=== PATIENT | male | born 1995 | race Caucasian/White ===

== ENCOUNTER 2016-09-04 18:25 | Emergency (ER) | payer BC ==
[~2016-09-04] VITALS: Ht 190.5 cm; Wt 116.3 kg
[~2016-09-04 18:25] MED LIST: FEXO1TAB49 PO; IBUP-1050 PO
[2016-09-04 18:34] VITALS: TEMP 36.9; Ht 190.5 cm; Wt 116.3 kg
[2016-09-04] MEDS ORDERED: XYLOCAINE 1%/SOD BICARB 20 ML VIAL INFIL STA (18:52)
[2016-09-04 19:15] LABS: BASO % 0.4 %; BASO ABS # 0.04 K/uL (0-0.2); COMPLETE YES; EOS % 2.7 %; HEMATOCRIT 45.9 % (42-52); IG% 0.2 %; LYMPH % 24.9 %; LYMPH ABS # 2.24 K/uL (1.2-3.4); MEAN CELL VOLUME 87.3 fL (80-100); MEAN CORPUSCULAR HEMOGLOBIN 31.7 pg (25-34); MEAN CORPUSCULAR HGB CONC 36.4 g/dl (32-36); MEAN PLATELET VOLUME 11.5 fL (7.4-10.4); MONO % 4.8 %; PLATELET COUNT 220 K/uL (130-400); RED BLOOD COUNT 5.26 M/uL (4.7-6.1)
[2016-09-04 19:49] LABS: BUN/CREATININE RATIO 10.8 (10-20); CALCIUM 8.7 mg/dl (8.5-10.1); POTASSIUM 4.3 mmol/L (3.5-5.1)
--- NOTE | 2016-09-04 19:57 | DIAGNOSTIC IMAGING REPORT ---
LEFT KNEE 3 VIEWS HISTORY: Left knee pain COMPARISON: None. FINDINGS: There is no fracture or dislocation. Soft tissues are unremarkable. No significant knee effusion. IMPRESSION: No fractures. Electronically signed by: Sidney Austin M.D. 09/04/2016 7:56 PM Dictated Date/Time: 09/04/2016 7:54 PM
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
[2016-09-04 20:16] VITALS: BP 147/76; PULSE 82; O2SAT 97
[2016-09-04 20:40] LABS: LYME DISEASE AB IGG NEG (NEG); LYME DISEASE AB IGM NEG (NEG)
== END 2016-09-04 20:16 | disposition home or self-care (01) ==
LOC: C.EDB 18:26 → C.EDD 20:16
DX: S01.01XA Laceration without foreign body of scalp, initial encounter (principal); W20.8XXA Other cause of strike by thrown, projected or falling object, initial encounter; Y99.0 Civilian activity done for income or pay; M25.562 Pain in left knee; M25.561 Pain in right knee; J45.909 Unspecified asthma, uncomplicated

== ENCOUNTER 2016-09-13 14:54 | Emergency (ER) | payer BC ==
[~2016-09-13] VITALS: Ht 190.5 cm; Wt 111.5 kg
[~2016-09-13 14:54] MED LIST changes: -FEXO1TAB49 PO
[2016-09-13 14:57] VITALS: BP 142/83; PULSE 93; TEMP 36.7; O2SAT 93; Ht 190.5 cm; Wt 111.5 kg
--- NOTE | 2016-09-13 15:27 | EMERGENCY ROOM VISIT NOTE ---
ED Visit Note First contact with patient: 15:13 CHIEF COMPLAINT: Staple removal This patient returns to the ED today for removal of marisela that were placed 9 days ago on the patient's scalp. There has been no swelling, redness, or drainage from the wound. The patient feels like the laceration is healing well. REVIEW OF SYSTEMS: Head: No headache, injury or neck pain. Skin: No rash, new lesions, or masses. General: No fever or chills, fatigue, loss of appetite , or significant recent weight gain or loss. PMH: The patient is healthy; there is no significant medical or surgical history. SOCIAL HISTORY: Patient lives at home. PHYSICAL EXAM: Vital Signs: Reviewed Nurse's notes. There is a stapled wound on the scalp with no signs of infection. There is no erythema, swelling, or tenderness. EMERGENCY DEPARTMENT COURSE: 2 marisela were removed from the scalp without any difficulty and there was no separation of the wound edges. DIAGNOSIS: Healing laceration and staple removal DISCHARGE INSTRUCTIONS AND TREATMENT: Wash any remaining crusts off of the wound today and resume your normal activities. Problem List Medical Problems: (1) Asthma Status: Chronic (2) Bronchopneumonia Status: Resolved (3) Laceration of right thumb Status: Resolved (4) Pneumonia Status: Resolved Surgical Problems: (1) [place] teeth removed Status: Resolved Current/Historical Medications Scheduled PRN Ibuprofen (Advil), 200-800 MG PO Q4H PRN for Pain Allergies Coded Allergies: No Known Allergies (Unverified , 09/04/16) Vital Signs Date Time Temp Pulse Resp B/P Pulse Ox O2 Delivery O2 Flow Rate FiO2 09/13/16 14:57 36.7 93 16 142/83 93 Room Air Departure Information Impression Primary Impression: Encounter for removal of marisela Dispostion Home / Self-Care Condition GOOD Referrals Mandeep Ba M.D. (PCP) Patient Instructions My [facility] [employer] [facility] Additional Instructions Wash any remaining crusts off of the wound today and resume your normal activities.
== END 2016-09-13 15:37 | disposition home or self-care (01) ==
LOC: C.EDB 14:55 → C.EDD 15:37
DX: Z48.02 Encounter for removal of sutures (principal); J45.909 Unspecified asthma, uncomplicated

== ENCOUNTER → 2017-02-24 | Outpatient (CLI) | payer BC ==
--- NOTE | 2017-02-24 19:05 | DIAGNOSTIC IMAGING REPORT ---
LEFT ELBOW 3 VIEWS CLINICAL HISTORY: Olecranon bursitis. FINDINGS: 3 views of the left elbow are compared to study dated 08/12/2010. The skeletal structures are well mineralized. No fracture is seen. The joint spaces are well-maintained. There is no joint effusion. Posterior soft tissue edema is noted. IMPRESSION: Posterior soft tissue edema with no acute bony abnormality identified. Electronically signed by: Frederick Torres M.D. 02/24/2017 7:03 PM Dictated Date/Time: 02/24/2017 6:48 PM
== END | disposition home or self-care (01) ==
LOC: C.RAD 18:25
PROVIDERS: ATTEND Nurse Practitioner
DX: M70.22 Olecranon bursitis, left elbow (principal); S50.02XA Contusion of left elbow, initial encounter; X58.XXXA Exposure to other specified factors, initial encounter; M79.9 Soft tissue disorder, unspecified

== ENCOUNTER 2017-08-05 17:33 | Emergency (ER) | payer BC, OTHER ==
[~2017-08-05] VITALS: Ht 190.5 cm; Wt 100.4 kg
[2017-08-05 17:37] VITALS: TEMP 37; Ht 190.5 cm; Wt 100.4 kg
[2017-08-05] MEDS ORDERED: ONDANSETRON INJ 2 MG/ML 2 ML VIAL IV STA (19:03)
[2017-08-05] MEDS ORDERED: SUCRALFATE 1 GM TAB PO STA (19:03)
[2017-08-05] MEDS ORDERED: FAMOTIDINE 20 MG TAB PO STA (19:03)
[2017-08-05] MEDS ORDERED: GI COCKTAIL PO STA (19:03)
--- NOTE | 2017-08-05 19:10 | EMERGENCY ROOM VISIT NOTE ---
History Report prepared by Sandy: Virginia Mccain Under the Supervision of: Dr. Marito Chamberlain M.D. First contact with patient: 18:58 Chief Complaint: GI ASSESSMENT Stated Complaint: VOMITING WITH MODERATE BLOOD History of Present Illness The patient is a 21 year old male who presents to the Emergency Room for a GI assessment. The patient states that over the past week he has been experiencing hematemesis. He is unsure if he is bleeding from his throat or his stomach. This morning he had an episode of hematemesis that was worse than previous episodes so he decided to come to the ED for further evaluation. The patient reports some epigastric abdominal pain. He rates his pain as an 8/10 in severity. He denies any melena or hematochezia. The patient admits to drinking about two alcoholic drinks per day. Source of History: patient Onset: 1 week ago Position: abdomen Symptom Intensity: 8/10 Quality: other (hematemesis) Timing: worsening Associated Symptoms: + abdominal pain, No melena, No hematochezia Review of Systems See HPI for pertinent positives & negatives. A total of 10 systems reviewed and were otherwise negative. Past Medical & Surgical Medical Problems: (1) Asthma (2) Bronchopneumonia (3) Laceration of right thumb (4) Pneumonia Surgical Problems: (1) [place] teeth removed Family History Cancer Social History Smoking Status: Never Smoker Alcohol Use: occasionally Marital Status: in relationship Housing Status: lives with significant other Occupation Status: employed Current/Historical Medications Scheduled Fluticasone Propionate (Nasal) (Flonase Allergy Relief), 1 SPRAY KEYA QAM Pantoprazole Sodium (Protonix), 1 TAB PO DAILY Allergies Coded Allergies: No Known Allergies (Unverified , 09/04/16) Physical Exam Vital Signs Date Time Temp Pulse Resp B/P (MAP) Pulse Ox O2 Delivery O2 Flow Rate FiO2 08/05/17 21:55 86 18 136/61 98 Room Air 08/05/17 20:51 87 18 137/64 96 Room Air 08/05/17 17:37 37.0 116 17 148/83 98 Room Air Physical Exam GENERAL: Patient is a healthy-appearing well-nourished 21 year old male. HEAD: Normocephalic atraumatic EYES: Ocular movements intact pupils equal and react to light OROPHARYNX mucous membranes are moist no exudates present no erythema or edema present NECK: Supple no nuchal rigidity CHEST: Good equal expansion LUNGS: Clear and equal to auscultation CARDIAC: Normal S1 and S2 ABDOMEN: Soft nontender no guarding BACK: No CVA tenderness EXTREMITIES: No pain upon palpation normal muscle strength in all groups no clubbing cyanosis or edema NEURO: Patient is following commands and answering questions appropriately. Alert and oriented x3 Cranial Nerves 2-12 grossly intact Medical Decision & Procedures ER Provider Diagnostic Interpretation: Radiology results as stated below per my review and radiologist interpretation: ABDOMEN 2VIEW W/PA CHEST RTN CLINICAL HISTORY: 21 years-old Male presenting with Pt c/o epigastric pain . TECHNIQUE: PA view of the chest and supine and upright views of the abdomen were obtained. COMPARISON: 09/21/2014. FINDINGS: Cardiomediastinal silhouette normal. Lungs and pleural spaces clear. Nonobstructive bowel gas pattern. No gross pneumoperitoneum. Allowing for bowel gas and stool, no calcifications to suggest nephrolithiasis. Osseous structures normal. IMPRESSION: 1. No acute cardiopulmonary disease. 2. No radiographic evidence of acute intra-abdominal pathology. Electronically signed by: Femi Meneses M.D. 08/05/2017 9:25 PM Dictated Date/Time: 08/05/2017 9:24 PM Laboratory Results 08/05/17 20:00 Red Blood Count 5.41, Mean Corpuscular Volume 88.4, Mean Corpuscular Hemoglobin 32.0, Mean Corpuscular Hemoglobin Concent 36.2, Mean Platelet Volume 11.3, Neutrophils (%) (Auto) 77.5, Lymphocytes (%) (Auto) 14.0, Monocytes (%) (Auto) 6.2, Eosinophils (%) (Auto) 1.9, Basophils (%) (Auto) 0.1, Neutrophils # (Auto) 5.66, Lymphocytes # (Auto) 1.02, Monocytes # (Auto) 0.45, Eosinophils # (Auto) 0.14, Basophils # (Auto) 0.01 08/05/17 20:00 Test 08/05/17 19:50 08/05/17 20:00 Urine Color YELLOW Urine Appearance CLEAR (CLEAR) Urine pH 5.0 (4.5-7.5) Urine Specific [place] 1.030 (1.000-1.030) Urine Protein NEG (NEG) Urine Glucose (UA) NEG (NEG) Urine Ketones TRACE (NEG) Urine Occult Blood NEG (NEG) Urine Nitrite NEG (NEG) Urine Bilirubin NEG (NEG) Urine Urobilinogen NEG (NEG) Urine Leukocyte Esterase NEG (NEG) White Blood Count 7.30 K/uL (4.8-10.8) Red Blood Count 5.41 M/uL (4.7-6.1) Hemoglobin 17.3 g/dL (14.0-18.0) Hematocrit 47.8 % (42-52) Mean Corpuscular Volume 88.4 fL (80-100) Mean Corpuscular Hemoglobin 32.0 pg (25-34) Mean Corpuscular Hemoglobin Concent 36.2 g/dl (32-36) Platelet Count 166 K/uL (130-400) Mean Platelet Volume 11.3 fL (7.4-10.4) Neutrophils (%) (Auto) 77.5 % Lymphocytes (%) (Auto) 14.0 % Monocytes (%) (Auto) 6.2 % Eosinophils (%) (Auto) 1.9 % Basophils (%) (Auto) 0.1 % Neutrophils # (Auto) 5.66 K/uL (1.4-6.5) Lymphocytes # (Auto) 1.02 K/uL (1.2-3.4) Monocytes # (Auto) 0.45 K/uL (0.11-0.59) Eosinophils # (Auto) 0.14 K/uL (0-0.5) Basophils # (Auto) 0.01 K/uL (0-0.2) RDW Standard Deviation 42.3 fL (36.4-46.3) RDW Coefficient of Variation 13.1 % (11.5-14.5) Immature Granulocyte % (Auto) 0.3 % Immature Granulocyte # (Auto) 0.02 K/uL (0.00-0.02) Anion Gap 4.0 mmol/L (3-11) Est Creatinine Clear Calc Drug Dose 159.7 ml/min Estimated GFR () 141.7 Estimated GFR (Non- 122.2 BUN/Creatinine Ratio 14.5 (10-20) Calcium Level 9.0 mg/dl (8.5-10.1) Total Bilirubin 0.6 mg/dl (0.2-1) Direct Bilirubin 0.2 mg/dl (0-0.2) Aspartate Amino Transf (AST/SGOT) 25 U/L (15-37) Alanine Aminotransferase (ALT/SGPT) 53 U/L (12-78) Alkaline Phosphatase 80 U/L (45-117) Total Protein 8.3 gm/dl (6.4-8.2) Albumin 4.1 gm/dl (3.4-5.0) Lipase 70 U/L (73-393) Labs reviewed by ED physician. Medications Administered Medications (Trade) Dose Ordered Sig/Naveed Route Start Time Stop Time Status Last Admin Dose Admin Famotidine (Pepcid Tab) 20 mg NOW STAT PO 08/05/17 19:03 08/05/17 19:06 DC 08/05/17 20:48 20 MG Sucralfate (Carafate Tab) 1 gm NOW STAT PO 08/05/17 19:03 08/05/17 19:06 DC 08/05/17 20:47 1 GM Ondansetron HCl (Zofran Inj) 4 mg NOW STAT IV 08/05/17 19:03 08/05/17 19:06 DC 08/05/17 20:47 4 MG Al Hydroxide/Mg Hydroxide (Maalox Susp) 30 ml STK-MED ONCE .ROUTE 08/05/17 20:45 08/05/17 20:46 DC 08/05/17 20:48 30 ML Lidocaine HCl (Viscous Lidocaine 2% Soln) 20 ml STK-MED ONCE .ROUTE 08/05/17 20:45 08/05/17 20:46 DC 08/05/17 20:48 20 ML ED Course 1858: Past medical records reviewed. The patient was evaluated in room B10. A complete history and physical examination was performed. 1903: Zofran 4 mg IV, Sucralfate 1 gm PO, GI cocktail 24 ml PO, Pepcid tab 20 mg PO 7: I reassessed the patient at this time. He is feeling better and resting comfortably. I discussed the results and treatment plan with the patient. I answered all pertaining questions that he had. He expressed understanding and verbalized agreement. The patient will be discharged home. Medical Decision Etiologies such as appendicitis, diverticulitis, PUD, biliary pathology, UTI, pancreatitis, obstruction, mesenteric ischemia, aortic pathology, infections, inflammatory bowel disease, renal colic, as well as others were entertained. This is a 21-year-old male who presents emergency department complaining of hematemesis. I will note that the patient has a normal hemoglobin here in the emergency department and has a benign abdominal examination. He is given a GI cocktail Pepcid and Carafate. Repeat examination revealed improvement the patient's symptoms. I do believe that the patient suffered from a gastritis and I recommended he be placed on Protonix along with a clear liquid diet for the next 48 hours. In addition the patient was also placed on Maalox 5 mL's before every meal and at bedtime. I recommended that the patient follow-up with gastroenterology especially if he is continuing to vomit. Patient was in agreement with the treatment plan. Medication Reconcilliation Current Medication List: was personally reviewed by me Blood Pressure Screening Patient's blood pressure: Elevated blood pressure Blood pressure disposition: Elevated BP felt to be situational Impression Primary Impression: Hematemesis Scribe Attestation The scribe's documentation has been prepared under my direction and personally reviewed by me in its entirety. I confirm that the note above accurately reflects all work, treatment, procedures, and medical decision making performed by me. Departure Information Dispostion Home / Self-Care Prescriptions Pantoprazole Sodium (PROTONIX) 40 Mg Tab 1 TAB PO DAILY for 30 Days, #30 TAB Prov: Marito Chamberlain MD 08/05/17 Referrals No Doctor, Assigned (PCP) Felisa Edwards Donald S., MD Forms HOME CARE DOCUMENTATION FORM, IMPORTANT VISIT INFORMATION Patient Instructions ED PUD Vs Gastritis, Gastritis Tx, My [facility] Additional Instructions Clear liquid diet next 48 hours Take 5 ml Maalox before every meal and at bedtime Follow up with Dr Faulkner's office for continued epigastric pain You have been examined and treated today on an emergency basis only. This is not a substitute for, or an effort to provide, complete comprehensive medical care. It is impossible to recognize and treat all injuries or illnesses in a single emergency department visit. It is therefore important that you follow up closely with your PCP. Call as soon as possible for an appointment. Thank you for your time and consideration. I look forward to speaking with you again soon. Please don't hesitate to call us if you have any questions. Problem Qualifiers Primary Impression: Hematemesis Nausea presence: unspecified Qualified Codes: K92.0 - Hematemesis
[2017-08-05] MEDS ORDERED: FLUT0.15 NAE (20:02)
[2017-08-05 20:11] LABS: BASO % 0.1 %; BASO ABS # 0.01 K/uL (0-0.2); EOS % 1.9 %; EOS ABS # 0.14 K/uL (0-0.5); HEMATOCRIT 47.8 % (42-52); HEMOGLOBIN 17.3 g/dL (14.0-18.0); IG# 0.02 K/uL (0.00-0.02); LYMPH ABS # 1.02 K/uL (1.2-3.4); MEAN CELL VOLUME 88.4 fL (80-100); MEAN CORPUSCULAR HGB CONC 36.2 g/dl (32-36); MEAN PLATELET VOLUME 11.3 fL (7.4-10.4); MONO % 6.2 %; MONO ABS # 0.45 K/uL (0.11-0.59); NEUT % 77.5 %; NEUT ABS # 5.66 K/uL (1.4-6.5); PLATELET COUNT 166 K/uL (130-400); RED CELL DISTRIBUTION WIDTH CV 13.1 % (11.5-14.5); RED CELL DISTRIBUTION WIDTH SD 42.3 fL (36.4-46.3)
[2017-08-05 20:32] LABS: ALBUMIN 4.1 gm/dl (3.4-5.0); CREATININE 0.86 mg/dl (0.60-1.40); POTASSIUM 3.9 mmol/L (3.5-5.1)
[2017-08-05 20:39] LABS: TOTAL PROTEIN 8.3 gm/dl (6.4-8.2)
[2017-08-05] MEDS ORDERED: ALUMINUM/MAGNESIUM SUSP 30 ML UDC ONE (20:45)
[2017-08-05] MEDS ORDERED: LIDOCAINE HCL 2% VISC SOLN 20 ML UDC ONE (20:45)
--- NOTE | 2017-08-05 21:26 | DIAGNOSTIC IMAGING REPORT ---
ABDOMEN 2VIEW W/PA CHEST RTN CLINICAL HISTORY: 21 years-old Male presenting with Pt c/o epigastric pain . TECHNIQUE: PA view of the chest and supine and upright views of the abdomen were obtained. COMPARISON: 09/21/2014. FINDINGS: Cardiomediastinal silhouette normal. Lungs and pleural spaces clear. Nonobstructive bowel gas pattern. No gross pneumoperitoneum. Allowing for bowel gas and stool, no calcifications to suggest nephrolithiasis. Osseous structures normal. IMPRESSION: 1. No acute cardiopulmonary disease. 2. No radiographic evidence of acute intra-abdominal pathology. Electronically signed by: Femi Meneses M.D. 08/05/2017 9:25 PM Dictated Date/Time: 08/05/2017 9:24 PM
[2017-08-05 21:55] VITALS: BP 136/61; PULSE 86; O2SAT 98
[2017-08-05] MEDS ORDERED: PANT40TA PO (22:00)
[2017-08-18] MEDS ORDERED: IBUP-1459 PO (13:19)
[2017-08-28] MEDS ORDERED: OXYC-57 PO (08:05)
== END 2017-08-05 22:17 | disposition home or self-care (01) ==
LOC: C.EDB 17:35
DX: K92.0 Hematemesis (principal); R10.13 Epigastric pain

== ENCOUNTER → 2017-08-18 | Outpatient (CLI) | payer OTHER ==
[~2017-08-18] MED LIST changes: +FLUT0.15 NAE; -IBUP-1050 PO; +IBUP-1459 PO; +PANT40TA PO
--- NOTE | 2017-08-18 09:33 | DIAGNOSTIC IMAGING REPORT ---
ABDOMEN LIMITED (US) HISTORY: 21 years-old Male UMBILICAL HERNIA acute periumbilical pain with periumbilical hernia COMPARISON: Acute abdominal series radiographs 08/05/2017 TECHNIQUE: Multiple real-time sonographic images of the periumbilical tissues were obtained assessing grayscale appearance and color flow FINDINGS: There is a small fat-containing periumbilical hernia which measures up to 2.3 cm. Ostium of the hernia measures 1.1 cm. Hernia is only partially reducible. No bowel loops are seen extending into the hernia site. IMPRESSION: Partially reducible small fat filled periumbilical hernia. The above report was generated using voice recognition software. It may contain grammatical, syntax or spelling errors. Electronically signed by: Darwin Benitez M.D. 08/18/2017 9:31 AM Dictated Date/Time: 08/18/2017 9:29 AM
== END | disposition home or self-care (01) ==
LOC: C.ULTRBC 09:01
PROVIDERS: ATTEND Family Medicine
DX: K42.9 Umbilical hernia without obstruction or gangrene (principal)

== ENCOUNTER → 2017-08-28 | Day surgery (SDC) | payer OTHER ==
[2017-08-18 13:20] VITALS: Ht 190.5 cm; Wt 117.3 kg
[~2017-08-28] VITALS: Ht 190.5 cm; Wt 117.3 kg
[~2017-08-28] MED LIST changes: +ATROPINE SULFATE 0.1 MG/ML 5ML SYR IV PRN; +BUPIVACAINE 0.5 % 5 MG/1 ML MPF 30ML VIAL ONE; +CEFAZOLIN 2000MG IV PUSH 10 ML IV SCH; +DEXAMETHASONE SOD INJ 4 MG/ML VIAL IV PRN; +DEXAMETHASONE SOD INJ 4 MG/ML VIAL ONE; +EpHEDrine SULFATE INJ 50 MG/ML AMP IV PRN; +FENTANYL CITRATE INJ 50 MCG/1 ML 2 ML VIAL IV PRN; +FENTANYL CITRATE INJ 50 MCG/1 ML 2 ML VIAL ONE; +KETOROLAC TROMETHAMINE 30 MG/ML VIAL IV. PRN; +KETOROLAC TROMETHAMINE 30 MG/ML VIAL ONE; +LABETALOL HCL IV 5 MG/ML 20ML IV PRN; +LACTATED RINGER'S 1000ML 1,000 ML IV SCH; +LIDOCAINE HCL 2% 2 ML VIAL (20MG/ML) ONE; +METOCLOPRAMIDE HCL INJ 5 MG/ML 2 ML VIAL IV PRN; +MIDAZOLAM HCL 1 MG/ML 2ML VIAL ONE; +MoRPHine SULFATE 10 MG/ML CARP/VIAL IV PRN; +MoRPHine SULFATE 2 MG/ML CARP IV PRN; +MoRPHine SULFATE 4 MG/ML 1 ML CARP\\VIAL IV PRN; +ONDANSETRON INJ 2 MG/ML 2 ML VIAL IV PRN; +ONDANSETRON INJ 2 MG/ML 2 ML VIAL ONE; +OXYC-57 PO; +OXYCODONE/ACETAMINOPHEN 5-325 TAB PO PRN; -PANT40TA PO; +PHENYLEPHRINE 100MCG/ML 5ML SYR IV PRN; +PROPOFOL IV EMULSION 10 MG/ML 20 ML VIAL IV ONE; +SODIUM CHLORIDE 0.9% 1000ML 1,000 ML IV SCH
--- NOTE | 2017-08-28 07:06 | History & Physical Bridge - SC ---
H&P Re-Evaluation Bridge Note: I have examined the patient, reviewed the History & Physical and in the interval since the performance of the History & Physical I have noted the following changes of clinical significance: No changes noted
--- NOTE | 2017-08-28 08:01 | [facility] Post Operative Brief Note ---
Immediate Operative Summary Operative Date Aug 28, 2017. Pre-Operative Diagnosis Umbilical hernia Post-Operative Diagnosis same Procedure(s) Performed Umbilical Hernia Open Repair with mesh Surgeon Dr. Colindres [employer] Project Manager Surgeon(s) none Estimated Blood Loss 3ML Findings Consistent with Post-Op Diagnosis 2 small defects, combined 3cm defect, mesh placed Specimens NONE Drains None Anesthesia Type General Complication(s) none Disposition Accompanied Pt To Recover: no Disposition: Recovery Room / PACU
--- NOTE | 2017-08-28 08:08 | Discharge Instructions-SurgCtr ---
Discharge Instructions Date of Service Aug 28, 2017. Visit Reason for Visit: Umbilical Hernia Discharge Discharge Diagnosis / Problem: umbilical hernia Discharge Goals Goal(s): Decrease discomfort Activity Recommendations Activity Limitations: per Instructions/Follow-up section Anesthesia . Post Anesthesia Instructions: If you have had General Anesthesia or IV Sedation: * Do not drive today. * Resume driving when surgeon permits. * Do not make important decisions or sign legal documents today. * Call surgeon for: 1. Temperature elevations greater than 101 degrees F. 2. Uncontrollable pain. 3. Excessive bleeding. 4. Persistent nausea and vomiting. 5. Medication intolerance (nausea, vomiting or rash). * For nausea and vomiting use only clear liquids such as: tea, soda, bouillon until nausea subsides, then gradually increase diet as tolerated. * If you have any concerns or questions, call your surgeon's office. If physician is unavailable and it is an emergency, call 911 or go to the nearest emergency room. . Instructions / Follow-Up Instructions / Follow-Up Post-Operative Instructions After Hernia Repair 1. The patient may resume a regular diet as soon as tolerated. Small frequent meals, to begin with may be tolerated easier in the early post-operative stage. Increase at your own pace. No diet restrictions apply related to a hernia(s) repair. 2. The patient may experience either constipation or diarrhea after surgery and this may be caused by anesthesia, pain medications or reaction to surgery. This is not uncommon. The patient may take any over the counter medication(s) that have worked previously to correct the situation of diarrhea or constipation. Suggestions are: Milk of Magnesia, Dulcolax tablets or suppositories as directed for constipation. Also increasing fluids such as water, juices, etc. will help with elimination. Suggestions for diarrhea include Pepto-Bismol and Imodium AD as directed for diarrhea. Also drinking Gatorade and BRAT diet (bananas, rice, applesauce, toast) may help to alleviate and correct some of the side effects of diarrhea. 3. The patient may shower 48 hours after surgery. The patient may remove the dressing at this time. The dressing may be replaced if the patient desires or left off. This is strictly the choice of the patient. Some patients may not have a dressing at all but some glue instead. Suggestion: Some patients state a light dressing to the to the incisional area(s) (which may drain) is more comfortable if the clothing at incision site(s) rubs or irritates. If the patient observes Steri-Strips (small strips of textured adhesive tape) at incisions or over sutures please leave intact. The patient may get them wet in the shower and pat dry. The sutures (if the patient has sutures) should be left intact. 4. The patient needs to call the office for a post-operative appointment, if one is not already made at . The patient will need to be seen in the office 1-2 weeks after the surgery date. Please call ahead for appointment. At the time of post-operative office visit, physical activity/work release will be discussed and release forms given. 5. The patient may resume activity slowly. The patient may no t engage in strenuous activity or heavy lifting until cleared by physician, which can be discussed at post-operative appointment. However, the patient should listen to their body in response to certain activities. Gradually increase activities at a comfortable, individual pace. There are no restrictions regarding stairs, however the patient should be cautious initially and advance slowly. 6. The patient may resume driving when not taking pain medication, which may impair judgment and response during driving. The patient should also feel capable of having physical strength and capability to respond quickly to any situation that may occur while driving. 7. The patient may use ice to incisional sites post-operatively to decrease pain and/or swelling days 1 to 3. It is not at all uncommon for patient to have swelling and bruising at incision(s), which may extend to genital areas. This problem may be decreased by placing a rolled hand towel under the scrotum which will elevate the genital area to assist with decreasing the swelling. This is to be utilized while in bed or up in a chair. While patient is up and walking around, an athletic supporter is recommended to help with any swelling and to give support to swollen area for comfort. 8. The patient may experience some drainage from the incisions, which is not uncommon. If patient experiences a small amount of bloody drainage, ice to the area should alleviate this. Any other drainage may be due to normal body response which a light dressing can be applied and changed as needed. The patient may also experience slight redness at incision ends where a suture may be noted. These areas can be cleaned a few times per day with hydrogen Peroxide and a Q-Tip. Bruising at these sites is not uncommon. 9. Please contact the office should you develop any problems such as prolonged nausea/vomiting, temperature elevations above 101.5 or other difficulties. Diet Recommendations Home Diet: no limitations, resume previous diet Procedures Procedures Performed: Umbilical Hernia Open Repair with mesh Pending Studies Studies pending at discharge: no Medical Emergencies . Who to Call and When: Medical Emergencies: If at any time you feel your situation is an emergency, please call 911 immediately. . Non-Emergent Contact Non-Emergency issues call your: Surgeon . . "Provider Documentation" section prepared by Sohail Colindres. .
--- NOTE | 2017-08-28 08:19 | [facility] Operative Report ---
Operative Report Operative Date Aug 28, 2017. Pre-Operative Diagnosis Umbilical hernia Post-Operative Diagnosis same Procedure(s) Performed Umbilical Hernia Open Repair with mesh Surgeon Dr. Colindres Service Station Manager Surgeon(s) none Estimated Blood Loss 3ML Findings 2 small defects, combined, 3 cm total defect. 4.3 cm Cqur mesh placed. Specimens NONE Drains none Anesthesia General Complication(s) None Disposition Recovery Room / PACU Indications 21-year-old male with symptomatic umbilical hernia, plan for umbilical hernia repair. The risks of the procedure were discussed, all questions were answered , and the patient agreed to proceed with surgery as planned. Description of Procedure The patient was properly identified, consented, and taken to the operating room where he was placed in the supine position. General endotracheal anesthesia was induced. SCDs and a safety belt were placed. Preoperative antibiotics were administered. The patient's abdomen was prepped and draped in the standard sterile fashion. Surgical timeout was performed and all parties were in agreement that this was the correct patient and procedure to be performed and we continued as planned. A curvilinear infraumbilical incision was made and deepened down to the fascia with blunt dissection. The umbilical stalk was circumferentially dissected with a Fiordaliza, and divided below the level of the skin. A 1 cm fascial defect was encountered. The hernia was reduced. The fascia anteriorly and posteriorly was cleared of investing tissue for several centimeters. There is an additional 5 mm defect just superior to the other defect, a small fascial bridge was divided combining the defects and the total diameter was 3 cm. Hemostasis was achieved within the wound. A 4.3 cm piece of Cqur mesh was sown into place with interrupted 0 Nurolon sutures. The wound was irrigated and hemostasis confirmed. The umbilicus was tacked down to the fascia with 3-0 Vicryl sutures. Local anesthetic in the form of 0.5% Marcaine was injected in the fascia and along the skin incision. The skin was closed with interrupted 3-0 Vicryl deep dermal sutures, followed by 4-0 Monocryl running subcuticular suture. Dermabond was placed over the wound. The patient was extubated in the operating room and taken to the PACU where he recovered without apparent incident. All sponge, instrument and needle counts were correct at the conclusion of the procedure. The patient tolerated the procedure well. I attest to the content of the Intraoperative Record and any orders documented therein. Any exceptions are noted below.
[2017-08-28 08:50] VITALS: BP 102/60; PULSE 76; TEMP 36.9; O2SAT 96
--- NOTE | 2017-08-28 09:43 | Anesthesia Progress Nt - [facility] ---
Anesthesia Post Op Note Date & Time Aug 28, 2017 at 09:43 Vital Signs Pain Intensity: 5 Vital Signs Past 12 Hours Date Time Temp Pulse Resp B/P (MAP) Pulse Ox O2 Delivery O2 Flow Rate FiO2 08/28/17 08:50 36.9 76 16 102/60 (74) 96 Room Air 08/28/17 08:44 36.7 08/28/17 08:41 140/71 (90) 08/28/17 08:40 74 13 08/28/17 08:40 79 13 99 08/28/17 08:38 Room Air 08/28/17 08:36 140/78 (89) 08/28/17 08:35 72 18 08/28/17 08:35 65 18 100 08/28/17 08:31 140/81 (90) 08/28/17 08:30 62 13 100 08/28/17 08:30 62 13 08/28/17 08:26 138/74 (82) 08/28/17 08:25 63 15 100 08/28/17 08:25 64 15 08/28/17 08:21 142/88 (105) 08/28/17 08:20 66 9 100 08/28/17 08:20 66 9 08/28/17 08:16 142/80 (104) 08/28/17 08:15 66 13 08/28/17 08:15 70 13 100 08/28/17 08:11 147/94 (100) 08/28/17 08:10 65 17 100 08/28/17 08:10 64 17 08/28/17 08:08 37.1 93 16 150/98 100 Diffusion Mask 5 08/28/17 08:07 150/98 (111) 08/28/17 06:40 36.6 87 18 160/65 (96) 96 Room Air Notes Mental Status: alert / awake / arousable, participated in evaluation Pt Amnestic to Procedure: Yes Nausea / Vomiting: adequately controlled Pain: adequately controlled Airway Patency, RR, SpO2: stable & adequate BP & HR: stable & adequate Hydration State: stable & adequate Anesthetic Complications: no major complications apparent
== END | disposition home or self-care (01) ==
LOC: X.SURG 06:30
PROVIDERS: ATTEND Surgery
DX: K42.9 Umbilical hernia without obstruction or gangrene (principal); J45.909 Unspecified asthma, uncomplicated; F17.200 Nicotine dependence, unspecified, uncomplicated; Z80.3 Family history of malignant neoplasm of breast